=== PATIENT | female | born 1985 | race Caucasian/White ===

== ENCOUNTER → 2018-04-11 | Outpatient (CLI) | payer BC ==
[~2018-04-11] MED LIST: PRENTAB26 PO
== END | disposition home or self-care (01) ==
LOC: C.LAB1850 07:45
PROVIDERS: ATTEND Obstetrics & Gynecology
DX: Z34.81 Encounter for supervision of other normal pregnancy, first trimester (principal)

== ENCOUNTER 2018-10-15 01:54 | Inpatient (IN) ==
[2018-10-15] MEDS ORDERED: LACTATED RINGER'S 1,000 ML IV PRN ×3 (02:37→09:32)
[2018-10-15] MEDS ORDERED: OXYTOCIN 30 UNITS/500 ML BAG IV PRN ×3 (02:37→15:00)
--- NOTE | 2018-10-15 02:46 | History & Physical Report ---
Date of Service October 15, 2018 Assessment & Plan (1) Spontaneous rupture of amniotic membranes: plan expectant management. does not really need cervical ripening. If unchanged or no good contraction pattern by 6 hours srom, would plan pitocin. fetus reassuring. anticipate . (2) 40 weeks gestation of : History of Present Illness Chief Complaint: lof Primary Care Provider: Eris Samuel MD Patient is a 33yowf with iup at 40 2/7 weeks who comes to labor and delivery c/o lof starting at 12a. Notes copious clear. no vb. +fm. Not really noting any contractions. has been uncomplicated. labs--A+/ab-/pap nl/ri/rprnr/hepb-/hiv-/gc/ct-/gtt x 2 nl/ gbs neg Allergies Allergy/AdvReac Type Severity Reaction Status Date / Time No Known Allergies Allergy Verified 10/15/18 02:09 Home Medications Home Medications Medication Instructions Recorded Confirmed Type Multivit/Min/Iron/Fol Ac/Pren 1 tab PO DAILY #0 tab 11/11/14 10/15/18 History ( Vitamin) Patient History Medical History Anxiety was taking lexapro- stopped during [employer], heart 9th grade - no issues with this Pre-eclampsia 2014 with last was induced at 37wks Vaginal delivery 2015 had pre-eclampsia [place] teeth extracted at age 17 [place] teeth extracted Surgical History History of reduction surgery of right breast 2006 Hx of cholecystectomy at age 13 Family History Grandfather (Maternal) Diabetes Grandmother (Paternal) Hypertension Elevated cholesterol Father Hypertension Elevated cholesterol Grandmother (Maternal) Twins live born in hospital OB History g1--12/02, , 7#12oz, pet with this (on asa this for prevention) [employer] History no std, no abnl paps Review of Systems All systems reviewed & are unremarkable except as noted in HPI & below Physical Exam 2 Vital Signs (Past 24 Hours): Last Vital Signs Pulse 75 10/15/18 02:14 BP 129/76 10/15/18 02:14 Constitutional: WD/WN, vitals as above Gastrointestinal (Abdomen): soft, nt, gravid Genitourinary: cx--2/50/-2 grossly ruptured toco--lexis efm--125 with mod variability, accels to 160s, no decels
[2018-10-15 03:06] LABS: Hematocrit (blood only) 34.1 % (37-47); Hemoglobin 11.3 g/dL (12.0-16.0); Mean Corpuscular Volume 88.8 fL (80-100); Mean Platelet Volume 10.2 fL (7.4-10.4); Platelet Count 233 K/uL (130-400); RDW Coefficient of Variation 15.3 % (11.5-14.5); Red Blood Count 3.84 M/uL (4.2-5.4); White Blood Count 9.54 K/uL (4.8-10.8)
[2018-10-15 03:09] LABS: Mean Corpuscular Hgb Conc 33.1 g/dL (32-36)
[2018-10-15] MEDS: LACTATED RINGER'S 1,000 ML IV SCH ×2 (06:26→10:04)
--- NOTE | 2018-10-15 07:20 | Anesthesiology Consultation ---
Date of Service October 15, 2018 Assessment & Plan Chart Review Chart Review: Acceptable Risk for Labor Epidural Consults Requested none ASA ASA2 Proposed Anesthesia Anesthesia Type: Labor Epidural Risk / Benefits Reviewed With: PT / POA / Parent / Guardian, Accepts Plan and Informed Consent Obtained NPO Date Last Intake of Fluids: 10/15/18 Time Last Intake of Fluids: 07:00 Last Intake of Fluids Comment: Sips of water Date Last Intake of Solids: 10/15/18 Time Last Intake of Solids: 00:01 History Height/Weight Height: 1.68 m Weight: 95.708 kg Allergies Allergy/AdvReac Type Severity Reaction Status Date / Time No Known Allergies Allergy Verified 10/15/18 02:09 Medications Home Medications Medication Instructions Recorded Confirmed Last Taken PNV cmb#95-ferrous fumarate-FA 1 tab PO DAILY 10/15/18 10/15/18 10/13/18 21:30 [] Active Medications Generic Name Dose Route Start Last Admin Trade Name Freq PRN Reason Stop Dose Admin Lactated Ringer's 1,000 mls @ 125 mls/hr 10/15/18 02:45 10/15/18 06:26 Lr IV 10/17/18 02:44 125 mls/hr .Q8H CATARINO Administration Oxytocin 30 units in 500 mls @ 1 mls/hr 10/15/18 05:11 10/15/18 07:00 Pitocin IV 10/17/18 05:10 0.18 units/hr .Q24H PRN 3 mls/hr Labor Induction/Augmentation Titration Protocol 0.06 UNITS/HR Past Medical History Medical History Anxiety was taking lexapro- stopped during [employer], heart 9th grade - no issues with this Pre-eclampsia 2014 with last was induced at 37wks Vaginal delivery 2015 had pre-eclampsia [place] teeth extracted at [place] 17 [place] teeth extracted Past Family History Family History Grandfather (Maternal) Diabetes Grandmother (Paternal) Hypertension Elevated cholesterol Father Hypertension Elevated cholesterol Grandmother (Maternal) Twins live born in hospital Past Surgical History Surgical History History of reduction surgery of right breast 2006 Hx of cholecystectomy at age 13 Past Anesthesia History No Hx of Anesthesia Complications and No Family Hx of Anesthesia Complications History of PONV No Motion Sickness Screening History of Motion Sickness: No Social History Smoking Status: Never smoker Do You Dip or Chew Tobacco: No Hx Alcohol Use: No Hx Substance Use: No Exercise / Class Metabolic Activity II 4-5 Yardwork/Stairs/Walk up hill Physical Exam Vital Signs Last Vital Signs Temp 36.8 C 10/15/18 07:00 Pulse 71 10/15/18 06:34 Resp 20 10/15/18 07:00 BP 126/71 10/15/18 06:34 ENMT Mouth: no TMJ abnormality and no TMJ clicking Thyromental Distance: > or= 3.5 Finger Breadths Mallampati Class: III Neck normal visual inspection; neck extension not limited Respiratory Auscultation: lungs clear to auscultation bilaterally Cardiovascular Rate/Rhythm: regular rate and regular rhythm Psychiatric Orientation: alert and oriented x 3 Testing Laboratory Results 10/15/18 02:53
[2018-10-15] MEDS ORDERED: fentaNYL 2MCG/ML ROPIV 1.25MG/ML 100 ML BAG EPI ONE (08:45)
[2018-10-15] MEDS ORDERED: fentaNYL citrate 100 MCG/2 ML VIAL ONE (08:45)
[2018-10-15] MEDS ORDERED: BUPIVACAINE 0.25% 30 ML VIAL ONE (08:45)
[2018-10-15] MEDS ORDERED: ePHEDrine sulfate 50 MG/ML AMP ONE (08:45)
[2018-10-15] MEDS ORDERED: ONDANSETRON INJ 2 MG/ML 2 ML VIAL IV PRN (09:32)
[2018-10-15] MEDS ORDERED: DiphenhydrAMINE HCL 50 MG/ML VIAL IV PRN (09:32)
[2018-10-15] MEDS ORDERED: fentaNYL 2MCG/ML ROPIV 1.25MG/ML 100 ML BAG EPI PRN (09:32)
[2018-10-15] MEDS ORDERED: NALOXONE HCL 1 MG in SODIUM CHLORIDE 0.9% 1000ML 1,000 ML IV PRN (09:32)
[2018-10-15] MEDS ORDERED: ePHEDrine sulfate 50 MG/ML AMP IV PRN (09:32)
[2018-10-15] MEDS ORDERED: NALBUPHINE HCL INJ 10 MG/ML AMP IV PRN (09:32)
[2018-10-15] MEDS ORDERED: PROMETHAZINE HCL 12.5 MG in SODIUM CHLORIDE 0.9% 50 ML IV PRN (09:32)
[2018-10-15] MEDS ORDERED: NALOXONE HCL 0.4 MG/1 ML VIAL/CARP IV PRN (09:32)
--- NOTE | 2018-10-15 10:06 | Obstetrical Progress Note ---
Date of Service October 15, 2018 Assessment & Plan (1) Spontaneous rupture of amniotic membranes: - heart rate tracing category 2 with variability and accelerations -Patient comfortable now with epidural -We will continue to increase Pitocin per induction protocol -Anticipate vaginal delivery Subjective Change of shift note: Patient is a 33-year-old 2 para 1 at 40+ weeks gestational age admitted early this a.m. with spontaneous rupture of membranes. Patient observed for spontaneous onset of labor. No regular contractions noted and Pitocin was initiated per induction protocol. Patient became uncomfortable and epidural was placed. Change of shift with new baseball coach assuming care for the patient. Physical Exam 2 Vital Signs (Past 24 Hours): Last Vital Signs Temp 36.9 C 10/15/18 08:59 Pulse 67 10/15/18 09:57 Resp 20 10/15/18 08:59 BP 125/68 10/15/18 09:53 Pulse Ox 100 10/15/18 09:57 Gastrointestinal (Abdomen): Gravid, vertex, positive heart tones, positive palpable contractions Genitourinary: Manual OB Exam: + cervical dilation 3 cm, + cervical effacement 80% and + station -2 OB Exam Monitor Tracing: + external FHT monitor used and + category II
--- NOTE | 2018-10-15 14:07 | Obstetrical Progress Note ---
Date of Service October 15, 2018 Assessment & Plan (1) Spontaneous rupture of amniotic membranes: - fully dilated - begin 2nd stage Physical Exam 2 Vital Signs (Past 24 Hours): Last Vital Signs Temp 37.0 C 10/15/18 13:23 Pulse 74 10/15/18 14:02 Resp 20 10/15/18 13:23 BP 139/74 10/15/18 13:54 Pulse Ox 100 10/15/18 14:02 Genitourinary: Manual OB Exam: + cervical dilation 10 cm, + cervical effacement 100% and + station + 2 OB Exam Monitor Tracing: + external FHT monitor used and + category II
--- NOTE | 2018-10-15 14:53 | Anesthesia Procedure Note ---
Date of Service October 15, 2018 Anesthesia Post Epidural Note Vital Signs Vital Signs: Temp Pulse Resp BP Pulse Ox 10/15/18 14:39 86 134/67 10/15/18 14:24 101 H 121/66 10/15/18 14:07 104 H 100 10/15/18 14:02 74 100 10/15/18 13:57 82 100 10/15/18 13:54 75 139/74 10/15/18 13:52 72 100 10/15/18 13:47 70 99 10/15/18 13:42 72 100 10/15/18 13:37 76 100 10/15/18 13:32 78 100 10/15/18 13:27 77 100 10/15/18 13:24 72 133/77 10/15/18 13:23 37.0 C 20 10/15/18 13:22 72 100 10/15/18 13:17 78 98 10/15/18 13:12 71 99 10/15/18 13:09 71 133/73 10/15/18 13:07 74 99 10/15/18 13:02 70 99 10/15/18 12:57 72 98 10/15/18 12:54 76 127/73 10/15/18 12:52 77 98 10/15/18 12:47 81 98 10/15/18 12:42 85 99 10/15/18 12:40 66 94 10/15/18 12:39 68 119/62 10/15/18 12:37 84 97 10/15/18 12:32 68 97 10/15/18 12:27 69 94 10/15/18 12:25 67 120/62 10/15/18 12:22 67 94 10/15/18 12:17 68 94 10/15/18 12:12 71 97 10/15/18 12:10 72 116/59 L 10/15/18 12:07 78 98 10/15/18 12:02 76 97 10/15/18 11:57 78 99 10/15/18 11:55 71 114/58 L 10/15/18 11:52 68 99 10/15/18 11:47 71 100 10/15/18 11:42 75 99 10/15/18 11:40 73 121/56 L 10/15/18 11:37 75 99 10/15/18 11:32 71 97 10/15/18 11:30 36.9 C 16 10/15/18 11:27 88 99 10/15/18 11:24 67 129/66 10/15/18 11:22 68 100 10/15/18 11:17 66 100 10/15/18 11:12 65 98 10/15/18 11:09 65 127/65 10/15/18 11:07 70 100 10/15/18 11:02 62 100 10/15/18 10:57 64 98 10/15/18 10:54 64 128/66 10/15/18 10:52 71 100 10/15/18 10:47 67 100 10/15/18 10:42 66 100 10/15/18 10:40 62 123/61 10/15/18 10:37 66 100 10/15/18 10:32 70 100 10/15/18 10:27 64 100 10/15/18 10:25 65 125/65 10/15/18 10:22 66 100 10/15/18 10:17 67 100 10/15/18 10:12 67 100 10/15/18 10:10 64 125/62 10/15/18 10:07 61 100 10/15/18 10:02 66 100 10/15/18 09:57 67 100 10/15/18 09:53 66 125/68 10/15/18 09:52 63 20 99 10/15/18 09:48 65 127/65 10/15/18 09:47 66 99 10/15/18 09:42 71 133/74 98 10/15/18 09:37 82 133/71 100 10/15/18 09:32 73 99 10/15/18 09:31 79 130/71 10/15/18 09:28 79 132/72 10/15/18 09:27 76 98 10/15/18 09:25 74 128/69 10/15/18 09:24 73 133/69 10/15/18 09:22 81 128/78 99 10/15/18 09:19 76 135/83 10/15/18 09:17 78 100 10/15/18 09:12 79 100 10/15/18 09:07 82 97 10/15/18 09:02 71 98 10/15/18 08:59 36.9 C 20 10/15/18 08:34 75 140/77 10/15/18 07:34 76 136/82 10/15/18 07:00 36.8 C 20 10/15/18 06:34 71 20 126/71 10/15/18 04:01 36.4 C L 20 10/15/18 02:29 36.7 C 75 20 129/76 10/15/18 02:14 36.7 C 75 20 129/76 Pain Intensity Bilateral Abdomen: Pain Intensity: 0 Notes Mental Status: alert / awake / arousable Patient Amnestic to Procedure: No Nausea / Vomiting: adequately controlled Pain: adequately controlled Airway Patency, RR, SpO2: stable & adequate BP & HR: stable & adequate Hydration State: stable & adequate Anesthetic Complications: no major complications apparent Epidural: Removed without complications and With tip intact Notes: Site looks clean, dry, intact without signs of edema or erythema. Pt without complaints
[2018-10-15] MEDS ORDERED: ACETAMINOPHEN W/CODEINE #3 1 TAB PO PRN (15:00)
[2018-10-15] MEDS ORDERED: BENZOCAINE 20% AER SPR 82.5 GM CAN EXT PRN (15:00)
[2018-10-15] MEDS ORDERED: ACETAMINOPHEN 325 MG TAB PO PRN (15:00)
[2018-10-15] MEDS ORDERED: DIPHTHERIA/TETANUS/PERTUSSIS 0.5 ML SYR/VIAL IM ONE (15:00)
[2018-10-15] MEDS ORDERED: SUPERCREAM 0.870% 15 GM JAR EXT PRN (15:00)
[2018-10-15] MEDS ORDERED: HYDROCORTISONE ACETATE 25 MG SUPP PR PRN (15:00)
[2018-10-15 15:01] LABS: Base Excess Cord Arterial Bld 1.2 mEq/L (-9-1.8); CO2 Cord Arterial Blood 63 mmHg (39.1-73.5); HCO3 Cord Arterial Blood 30 mmol/L (19.7-28.5); pH Cord Arterial Blood 7.29 (7.1-7.38)
[2018-10-15 15:06] LABS: Base Excess Cord Venous Blood 0.2 mEq/L (-7.7-1.9); Cord Venous Blood HCO3 26 mmol/L (18.4-26.8); Cord Venous Blood PCO2 45 mmHg (30.4-57.2); Cord Venous Blood PO2 31 mmHg (14.1-43.3); Cord Venous Blood pH 7.38 (7.20-7.44)
[2018-10-15] MEDS: IBUPROFEN 600 MG TAB PO PRN ×2 (18:20→23:41)
--- NOTE | 2018-10-15 20:21 | Delivery Summary ---
DATE OF OPERATION: 10/15/2018 FINDINGS: A viable female infant with Apgars of 5 at 1 minute, 6 at 5 minutes and 8 at 10 minutes, delivered with a tight nuchal cord x2, cut on the perineum. Cord gases, cord blood samples obtained. Placenta delivered spontaneously. Perineum showed a small second degree laceration repaired with 4-0 Vicryl. ESTIMATED BLOOD LOSS: 300 mL. LABOR NOTE: The patient is a 33-year-old 2, para 1 with an EDC of 10/13/2018 at 40+ weeks gestational age who presented to labor and delivery with spontaneous rupture of membranes. The patient states that membranes ruptured approximately 0000 hours on day of admission. She described the fluid as clear, no vaginal bleeding or contractions. The patient has had a benign course. Blood type A positive, antibody negative, rubella immune, hepatitis B negative. She had negative 1 hour Glucola x2 and a negative third trimester beta strep culture. Upon admission, patient was noted to be 2 cm dilated, 50% effaced, -2 with gross rupture of membranes. Tracing was category 1. The patient was having no regular contractions. The patient wished to see if labor started spontaneously. The patient ambulated for approximately 6 hours with no regular contractions. Tracing remained category 1. At this point, Pitocin was initiated per induction protocol. Delivering physician assumed care for the patient. The patient progressed into a regular pattern. She became uncomfortable. Anesthesia was consulted and an epidural was placed. Over the next 5 hours, the patient has progressed to full dilatation, began her second stage. She rapidly brought the baby down, vertex was delivered. There was a tight nuchal cord x2 which could not be manually reduced. This necessitated a cutting of the umbilical cord on the peritoneum. The remainder of the baby was delivered and taken over to the resuscitation stand for evaluation. Cord gases, cord blood samples were obtained. Placenta was delivered spontaneously. Inspection of the perineum showed a small midline laceration which was repaired with interrupted 4-0 Vicryl suture. Estimated blood loss 300 mL. Sponge and needle count was correct. I attest to the content of the Intraoperative Record and any orders documented therein. Any exception s are noted below.
[2018-10-15] MEDS: DOCUSATE SODIUM 100 MG CAP PO SCH (21:33)
[2018-10-16] MEDS: IBUPROFEN 600 MG TAB PO PRN ×4 (06:42→19:49)
--- NOTE | 2018-10-16 06:57 | Obstetrical Progress Note ---
Date of Service October 16, 2018 Assessment & Plan (1) Status post vaginal delivery: Patient is a 33 year old PPD 1 s/p -Vital signs WNL bp 134/81 T36.8, -Hemoglobin was 11.3 on admission. no si/sx of anemia. -Pt is doing clinically well -Continue to encourage ambulation as tolerated, Monitor and control pain with motrin prn, Continue diet as tolerated. -Continue to support and encourage breast feeding -Routine care Subjective PT doing well sitting up with baby in her arms and dad at the bedside. No acute events overnight. Pt is ambulating, tolerating her diet, voiding, and passing gas, still no bm. I answered all questions, no concerns at this time Physical Exam Vital Signs (Past 24 Hours): Last Vital Signs Temp 36.8 C 10/15/18 23:30 Pulse 63 10/15/18 23:30 Resp 18 10/15/18 23:30 BP 134/81 10/15/18 23:30 Pulse Ox 100 10/15/18 14:07 Constitutional: WD/WN, vitals as above Eyes: normal visual pearl by confrontation Respiratory: normal respiratory effort, lungs clear to auscultation Cardiovascular: RRR, no murmur, no edema Extremities: no calf tenderness Gastrointestinal (Abdomen): normal bowel sounds, soft, nontender, no hepatosplenomegaly Uterus Firm and below the umbilicus Skin: no rashes, warm and dry Results & Data Laboratory Results 10/15/18 10/15/18 Range/Units 14:13 14:13 Cord ABG pH 7.29 (7.1-7.38) Cord ABG pCO2 63 (39.1-73.5) mmHg Cord ABG pO2 18.0 (4.1-31.7) % Cord ABG HCO3 30 H (19.7-28.5) mmol/L Cord ABG Base Excess 1.2 (-9-1.8) mEq/L Cord ABG O2 Sat < 60.0 (<60) % Cord VBG pH 7.38 (7.20-7.44) Cord VBG pCO2 45 (30.4-57.2) mmHg Cord VBG pO2 31 (14.1-43.3) mmHg Cord VBG HCO3 26 (18.4-26.8) mmol/L Cord VBG Base Excess 0.2 (-7.7-1.9) mEq/L Cord VBG O2 Sat 66.0 (<68) % Barometric Pressure 739.7 739.6 mm/Hg Blood Gas Comments CORREA CORREA Medications Administered Current Inpatient Medications Acetaminophen (Tylenol) 650 mg PO Q6H PRN PRN Reason: Pain/MONTES/Fever Stop: 11/14/18 14:59 Acetaminophen/Codeine Phosphate (Tylenol W/Codeine #3) 1 - 2 tab PO Q4H PRN PRN Reason: Pain not controlled with... Stop: 11/14/18 14:59 Benzocaine (Dermoplast Pain Relieving [place]) 1 appln EXT PRN PRN PRN Reason: Perineal Discomfort Stop: 11/14/18 14:59 Last Admin: 10/15/18 19:08 Dose: 82.5 appln Documented by: Bisacodyl (Dulcolax) 5 mg PO 1999 [facility] Stop: 10/16/18 20:01 Cocaine HCl (Supercream 0.870%) 1 gm EXT BID PRN PRN Reason: Hemorrhoidal Inflammation Stop: 10/29/18 14:59 Last Admin: 10/15/18 19:08 Dose: 1 appln Documented by: Diphenhydramine HCl (Benadryl) 25 mg IV Q6H PRN PRN Reason: Itching Stop: 10/16/18 09:31 Docusate Sodium (Colace) 100 mg PO BID [facility] Stop: 11/14/18 20:59 Last Admin: 10/15/18 21:33 Dose: 100 mg Documented by: Ephedrine Sulfate (Ephedrine Sulfate) 10 mg IV Q5M PRN PRN Reason: Hypotension Stop: 10/16/18 09:31 Ferrous Sulfate (Feosol) 325 mg PO QAM [facility] Stop: 11/15/18 08:59 Hydrocortisone (Anusol Hc) 25 mg [place] BID PRN PRN Reason: Hemorrhoidal Inflammation Stop: 11/14/18 14:59 Lactated Ringer's (Lr) 1,000 mls @ 999 mls/hr IV .Q1H1M PRN PRN Reason: Hypotension Stop: 10/16/18 09:31 Naloxone HCl 1 mg/ Sodium (Chloride) 1,002.5 mls @ 50 mls/hr IV .Q20H3M PRN PRN Reason: Nausea And Vomiting Stop: 10/16/18 09:31 Naloxone HCl 1 mg/ Sodium (Chloride) 1,002.5 mls @ 50 mls/hr IV .Q20H3M PRN PRN Reason: itching or nausea Stop: 10/16/18 09:31 Promethazine HCl 12.5 mg/ (Sodium Chloride) 50.5 mls @ 204 mls/hr IV Q6H PRN PRN Reason: Nausea And Vomiting Stop: 10/16/18 09:31 Oxytocin (Pitocin) 30 units in 500 mls @ 333.333 mls/hr IV .Q1H30M PRN; Protocol PRN Reason: BLEEDING CONTROL Stop: 11/14/18 14:59 Last Titration: 10/15/18 17:15 Dose: Infused Documented by: Ibuprofen (Motrin) 600 mg PO Q4H PRN PRN Reason: Pain/MONTES/Cramping/Fever Stop: 11/14/18 14:59 Last Admin: 10/16/18 06:42 Dose: 600 mg Documented by: Nalbuphine HCl (Nubain) 5 mg IV Q10M PRN PRN Reason: itching or nausea Stop: 10/16/18 09:31 Naloxone HCl (Narcan) 0.1 mg IV UD PRN PRN Reason: respiratory depression Stop: 10/16/18 09:31 Ondansetron HCl (Zofran) 4 mg IV Q6H PRN PRN Reason: Nausea And Vomiting Stop: 10/16/18 09:31 Prenat Multivit/Loan [employer]/Iron/Folic Ac ( Vitamin) [facility] [place] [place] [facility] [place]: 11/15/18 08:59 Ropivacaine (Epidural (L&D)) 100 ml EPI PRN PRN; Protocol PRN Reason: Pain R/T Labor Stop: 10/16/18 09:31 Resident Activity Tracking Resident Involvement: Resident Care Provided Care Provided: Adult Hospital Medicine
[2018-10-16 07:32] LABS: Hematocrit (blood only) 32.6 % (37-47); Hemoglobin 10.7 g/dL (12.0-16.0); Mean Corpuscular Hgb Conc 32.8 g/dL (32-36); Mean Corpuscular Volume 89.8 fL (80-100); Mean Platelet Volume 10.2 fL (7.4-10.4); Platelet Count 184 K/uL (130-400); RDW Coefficient of Variation 15.4 % (11.5-14.5); Red Blood Count 3.63 M/uL (4.2-5.4); White Blood Count 9.58 K/uL (4.8-10.8)
[2018-10-16] MEDS: DOCUSATE SODIUM 100 MG CAP PO SCH ×2 (08:56→19:49)
[2018-10-16] MEDS: PRENATAL VITAMIN 1 TAB PO SCH (08:56)
[2018-10-16] MEDS: FERROUS SULFATE 325 MG TAB PO SCH (08:57)
--- NOTE | 2018-10-16 10:20 | Obstetrical Progress Note ---
Date of Service October 16, 2018 Assessment & Plan (1) Status post vaginal delivery: Patient is a 33 year old PPD 1 s/p -Vital signs WNL bp 134/81 T36.8, -Hemoglobin was 11.3 on admission. no si/sx of anemia. -Pt is doing clinically well -Continue to encourage ambulation as tolerated, Monitor and control pain with motrin prn, Continue diet as tolerated. -Continue to support and encourage breast feeding -Routine care Supervising Physician Co-Signing Physician Notes Resident Physician Supervision Note: I was present with Dr. Mancilla during the history and exam. I discussed the case with the resident and agree with the findings and plan as documented in the note. Any exceptions or clarifications are listed here: [None] Documented By: Paolo Caba Jr, MD, FACOG Subjective PT doing well sitting up with baby in her arms and dad at the bedside. No acute events overnight. Pt is ambulating, tolerating her diet, voiding, and passing gas, still no bm. I answered all questions, no concerns at this time Physical Exam Vital Signs (Past 24 Hours): Last Vital Signs Temp 36.8 C 10/15/18 23:30 Pulse 63 10/15/18 23:30 Resp 18 10/15/18 23:30 BP 134/81 10/15/18 23:30 Pulse Ox 100 10/15/18 14:07 Physical Exam: Constitutional: WD/WN, vitals as above Eyes: normal visual pearl by confrontation Respiratory: normal respiratory effort, lungs clear to auscultation Cardiovascular: RRR, no murmur, no edema Extremities: no calf tenderness Gastrointestinal (Abdomen): normal bowel sounds, soft, nontender, no hepatosplenomegaly Uterus Firm and below the umbilicus Skin: no rashes, warm and dry Results & Data Laboratory Results 10/16/18 10/15/18 10/15/18 Range/Units 07:15 14:13 14:13 WBC 9.58 (4.8-10.8) K/uL RBC 3.63 L (4.2-5.4) M/uL Hgb 10.7 L (12.0-16.0) g/dL Hct 32.6 L (37-47) % MCV 89.8 (80-100) fL MCH 29.5 (25-34) pg MCHC 32.8 (32-36) g/dL RDW Std Deviation 50.0 H (36.4-46.3) fL RDW Coeff of Laura 15.4 H (11.5-14.5) % Plt Count 184 (130-400) K/uL MPV 10.2 (7.4-10.4) fL Cord ABG pH 7.29 (7.1-7.38) Cord ABG pCO2 63 (39.1-73.5) mmHg Cord ABG pO2 18.0 (4.1-31.7) % Cord ABG HCO3 30 H (19.7-28.5) mmol/L Cord ABG Base Excess 1.2 (-9-1.8) mEq/L Cord ABG O2 Sat < 60.0 (<60) % Cord VBG pH 7.38 (7.20-7.44) Cord VBG pCO2 45 (30.4-57.2) mmHg Cord VBG pO2 31 (14.1-43.3) mmHg Cord VBG HCO3 26 (18.4-26.8) mmol/L Cord VBG Base Excess 0.2 (-7.7-1.9) mEq/L Cord VBG O2 Sat 66.0 (<68) % Barometric Pressure 739.7 739.6 mm/Hg Blood Gas Comments CORREA CORREA Medications Administered Current Inpatient Medications Acetaminophen (Tylenol) 650 mg PO Q6H PRN PRN Reason: Pain/MONTES/Fever Stop: 11/14/18 14:59 Acetaminophen/Codeine Phosphate (Tylenol W/Codeine #3) 1 - 2 tab PO Q4H PRN PRN Reason: Pain not controlled with... Stop: 11/14/18 14:59 Benzocaine (Dermoplast Pain Relieving [place]) 1 appln EXT PRN PRN PRN Reason: Perineal Discomfort Stop: 11/14/18 14:59 Last Admin: 10/15/18 19:08 Dose: 82.5 appln Documented by: Bisacodyl (Dulcolax) 5 mg PO 1999 [facility] Stop: 10/16/18 20:01 Cocaine HCl (Supercream 0.870%) 1 gm EXT BID PRN PRN Reason: Hemorrhoidal Inflammation Stop: 10/29/18 14:59 Last Admin: 10/15/18 19:08 Dose: 1 appln Documented by: Diphenhydramine HCl (Benadryl) 25 mg IV Q6H PRN PRN Reason: Itching Stop: 10/16/18 09:31 Docusate Sodium (Colace) 100 mg PO BID [facility] Stop: 11/14/18 20:59 Last Admin: 10/15/18 21:33 Dose: 100 mg Documented by: Ephedrine Sulfate (Ephedrine Sulfate) 10 mg IV Q5M PRN PRN Reason: Hypotension Stop: 10/16/18 09:31 Ferrous Sulfate (Feosol) 325 mg PO QAM [facility] Stop: 11/15/18 08:59 Hydrocortisone (Anusol Hc) 25 mg [place] BID PRN PRN Reason: Hemorrhoidal Inflammation Stop: 11/14/18 14:59 Lactated Ringer's (Lr) 1,000 mls @ 999 mls/hr IV .Q1H1M PRN PRN Reason: Hypotension Stop: 10/16/18 09:31 Naloxone HCl 1 mg/ Sodium (Chloride) 1,002.5 mls @ 50 mls/hr IV .Q20H3M PRN PRN Reason: Nausea And Vomiting Stop: 10/16/18 09:31 Naloxone HCl 1 mg/ Sodium (Chloride) 1,002.5 mls @ 50 mls/hr IV .Q20H3M PRN PRN Reason: itching or nausea Stop: 10/16/18 09:31 Promethazine HCl 12.5 mg/ (Sodium Chloride) 50.5 mls @ 204 mls/hr IV Q6H PRN PRN Reason: Nausea And Vomiting Stop: 10/16/18 09:31 Oxytocin (Pitocin) 30 units in 500 mls @ 333.333 mls/hr IV .Q1H30M PRN; Protocol PRN Reason: BLEEDING CONTROL Stop: 11/14/18 14:59 Last Titration: 10/15/18 17:15 Dose: Infused Documented by: Ibuprofen (Motrin) 600 mg PO Q4H PRN PRN Reason: Pain/MONTES/Cramping/Fever Stop: 11/14/18 14:59 Last Admin: 10/16/18 06:42 Dose: 600 mg Documented by: Nalbuphine HCl (Nubain) 5 mg IV Q10M PRN PRN Reason: itching or nausea Stop: 10/16/18 09:31 Naloxone HCl (Narcan) 0.1 mg IV UD PRN PRN Reason: respiratory depression Stop: 10/16/18 09:31 Ondansetron HCl (Zofran) 4 mg IV Q6H PRN PRN Reason: Nausea And Vomiting Stop: 10/16/18 09:31 Prenat Multivit/[place]/Iron/Folic Ac ( Vitamin) 1 tab PO QAM [facility] Stop: 11/15/18 08:59 Ropivacaine (Epidural (L&D)) 100 ml EPI PRN PRN; Protocol PRN Reason: Pain R/T Labor Stop: 10/16/18 09:31 Resident Activity Tracking Resident Involvement: Resident Care Provided Care Provided: Adult Hospital Medicine
[2018-10-16] MEDS ORDERED: BISACODYL 5 MG TABEC PO SCH (20:00)
[2018-10-17] MEDS: IBUPROFEN 600 MG TAB PO PRN ×2 (02:08→07:44)
--- NOTE | 2018-10-17 06:36 | Obstetrical Progress Note ---
Date of Service October 17, 2018 Assessment & Plan (1) Status post vaginal delivery: Patient is a 33 year old PPD 2 s/p -Vital signs WNL bp 134/81 T36.8, -Hemoglobin is 11.3 on ppd1 down from 10.7 on admission. no si/sx of anemia. -Pt is doing clinically well -Continue to encourage ambulation as tolerated, Monitor and control pain with motrin prn, Continue diet as tolerated. -Continue to support and encourage breast feeding -Counseled patient on discharge instructions including Vaginal bleeding, fevers, followup, lifting restrictions, breast feeding, vitamins, and nothing in the vagina for 6 weeks. Pt was agreeable -Plan for d/c today Supervising Physician Co-Signing Physician Notes I have examined the patient and agree with the resident note above. Subjective Patient had a rough night as baby choose to cluster feed most of the night. Patient is tolerating her diet, ambulating, passing gas and voiding, still no bm. Reports moderate lochia. Denies H/A, chest pain, palpitations and uti syx. No concerns at this time Physical Exam Vital Signs (Past 24 Hours): Last Vital Signs Temp 36.9 C 10/17/18 00:10 Pulse 82 10/17/18 00:10 Resp 16 10/17/18 00:10 BP 126/73 10/17/18 00:10 Pulse Ox 98 10/17/18 00:10 Constitutional: WD/WN, vitals as above Eyes: normal visual pearl by confrontation Respiratory: normal respiratory effort, lungs clear to auscultation Cardiovascular: RRR, no murmur, no edema Extremities: no calf tenderness Gastrointestinal (Abdomen): normal bowel sounds, soft, nontender, no hepatosplenomegaly uterus firm below the umbilicus Skin: no rashes, warm and dry Results & Data Laboratory Results 10/16/18 Range/Units 07:15 WBC 9.58 (4.8-10.8) K/uL RBC 3.63 L (4.2-5.4) M/uL Hgb 10.7 L (12.0-16.0) g/dL Hct 32.6 L (37-47) % MCV 89.8 (80-100) fL MCH 29.5 (25-34) pg MCHC 32.8 (32-36) g/dL RDW Std Deviation 50.0 H (36.4-46.3) fL RDW Coeff of Laura 15.4 H (11.5-14.5) % Plt Count 184 (130-400) K/uL MPV 10.2 (7.4-10.4) fL Medications Administered Current Inpatient Medications Acetaminophen (Tylenol) 650 mg PO Q6H PRN PRN Reason: Pain/MONTES/Fever Stop: 11/14/18 14:59 Acetaminophen/Codeine Phosphate (Tylenol W/Codeine #3) 1 - 2 tab PO Q4H PRN PRN Reason: Pain not controlled with... Stop: 11/14/18 14:59 Benzocaine (Dermoplast Pain Relieving [place]) 1 appln EXT PRN PRN PRN Reason: Perineal Discomfort Stop: 11/14/18 14:59 Last Admin: 10/15/18 19:08 Dose: 82.5 appln Documented by: Cocaine HCl (Supercream 0.870%) 1 gm EXT BID PRN PRN Reason: Hemorrhoidal Inflammation Stop: 10/29/18 14:59 Last Admin: 10/15/18 19:08 Dose: 1 appln Documented by: Docusate Sodium (Colace) 100 mg PO BID [facility] Stop: 11/14/18 20:59 Last Admin: 10/16/18 19:49 Dose: 100 mg Documented by: Ferrous Sulfate (Feosol) 325 mg PO QAM [facility] Stop: 11/15/18 08:59 Last Admin: 10/16/18 08:57 Dose: 325 mg Documented by: Hydrocortisone (Anusol Hc) 25 mg [place] BID PRN PRN Reason: Hemorrhoidal Inflammation Stop: 11/14/18 14:59 Oxytocin (Pitocin) 30 units in 500 mls @ 333.333 mls/hr IV .Q1H30M PRN; Protocol PRN Reason: BLEEDING CONTROL Stop: 11/14/18 14:59 Last Titration: 10/15/18 17:15 Dose: Infused Documented by: Ibuprofen (Motrin) 600 mg PO Q4H PRN PRN Reason: Pain/MONTES/Cramping/Fever Stop: 11/14/18 14:59 Last Admin: 10/17/18 02:08 Dose: 600 mg Documented by: Prenat Multivit/Mills/Iron/Folic Ac ( Vitamin) 1 tab PO QAM [place] Stop: 11/15/18 08:59 Last Admin: 10/16/18 08:56 Dose: 1 tab Documented by:
[2018-10-17] MEDS: FERROUS SULFATE 325 MG TAB PO SCH (08:06)
[2018-10-17] MEDS: DOCUSATE SODIUM 100 MG CAP PO SCH (08:06)
[2018-10-17] MEDS: PRENATAL VITAMIN 1 TAB PO SCH (08:06)
== END 2018-10-17 13:17 | disposition home or self-care (01) | DRG 807 ==
LOC: OPB 01:54 → 4S1 01:55 → 4S2 17:21